=== PATIENT | female | born 1975 ===

== ENCOUNTER 2017-10-11 15:42 | Emergency (ER) | payer SELFPAY ==
[2017-10-11 15:48] VITALS: BP 117/72; PULSE 79; RESP 18; TEMP 98; O2SAT 100
--- NOTE | 2017-10-11 17:04 | ED PDOC ---
HPI: General Adult Time Seen by Provider: 10/11/17 15:56 Chief Complaint (Nursing): ENT Problem Chief Complaint (Provider): Neck pain History Per: Patient History/Exam Limitations: no limitations Onset/Duration Of Symptoms: Days (x 3) Current Symptoms Are (Timing): Still Present Additional Complaint(s): 41 year old female presents to the ED complaining of neck pain, onset 3 days ago. Patient reports difficulty turning her head side to side especially on the left side. Says she feels swelling in left side of neck, back of neck, and head. She admits to taking Advil and Motrin without relief. Patient denies injury, falls, sudden movements, fever, chills, sore throat, URI and trouble breathing, seeing or swallowing. PMD: Dr. Camden Whitman MD Past Medical History Reviewed: Historical Data, Nursing Documentation, Vital Signs Vital Signs: Last Vital Signs Temp 98.0 F 10/11/17 15:45 Pulse 79 10/11/17 15:45 Resp 18 10/11/17 15:45 BP 117/72 10/11/17 15:45 Pulse Ox 100 10/11/17 17:15 - Medical History PMH: No Chronic Diseases - Surgical History Surgical History: No Surg Hx - Family History Family History: States: Unknown Family Hx - Home Medications Home Medications: Ambulatory Orders Medication Instructions Recorded Cyclobenzaprine [Cyclobenzaprine 10 mg PO TID #30 tab 10/11/17 HCl] Naproxen [Naprosyn] 500 mg PO BID PRN #20 tablet 10/11/17 - Allergies Allergies/Adverse Reactions: Allergies Allergy/AdvReac Type Severity Reaction Status Date / Time No Known Allergies Allergy Verified 10/11/17 15:44 Review of Systems ROS Statement: Except As Marked, All Systems Reviewed And Found Negative Constitutional: Negative for: Fever, Chills Eyes: Negative for: Vision Change ENT: Negative for: Throat Pain, Other (trouble swallowing) Respiratory: Negative for: Shortness of Breath Musculoskeletal: Positive for: Neck Pain (limited ROM. Swelling in left side and back of neck and head. ) Neurological: Negative for: Change in Speech Physical Exam - Reviewed Nursing Documentation Reviewed: Yes Vital Signs Reviewed: Yes - Physical Exam Appears: Positive for: Non-toxic, No Acute Distress Head Exam: Positive for: ATRAUMATIC, NORMOCEPHALIC Skin: Positive for: Normal Color, Warm, Dry Eye Exam: Positive for: EOMI, Normal appearance, PERRL ENT: Positive for: Normal ENT Inspection (throat is clear) Neck: Positive for: Limited ROM (in lateral movement of head, mostly turning head to the left. ), Pain On Movement Of Neck (palapable tenderness to left cervical spine and trapezius) Cardiovascular/Chest: Positive for: Regular Rate, Rhythm. Negative for: Murmur Respiratory: Positive for: Normal Breath Sounds. Negative for: Respiratory Distress Gastrointestinal/Abdominal: Positive for: Normal Exam, Soft Back: Positive for: Normal Inspection Extremity: Positive for: Normal ROM. Negative for: Deformity Neurologic/Psych: Positive for: Alert, Oriented - ECG O2 Sat by Pulse Oximetry: 100 (RA) Pulse Ox Interpretation: Normal - Radiology X-Ray: Viewed By Me X-Ray Interpretation: Other (straightening of lordosis c/w acute spasm) - Progress Re-evaluation Time: 17:10 Condition: Improving,but remains with symptoms Medical Decision Making Medical Decision Making: Time: 16:26 Impression: acute muscle spasm of cervical spine Initial Plan: --Urine preg --Cervical spine Complete x-ray --Toradol 60 mg IM --Tylenol 650 mg PO --Valium 5 mg PO --Cervical Spine AP&LAT Scribe Attestation: Documented by Day Cunningham, acting as a scribe for Ann Orr MD. Provider Scribe Attestation: All medical record entries made by the Scribe were at my direction and personally dictated by me. I have reviewed the chart and agree that the record accurately reflects my personal performance of the history, physical exam, medical decision making, and the department course for this patient. I have also personally directed, reviewed, and agree with the discharge instructions and disposition. Disposition - Clinical Impression Clinical Impression: Cervical paraspinal muscle spasm - Patient ED Disposition Is Patient to be Admitted: No Doctor Will See Patient In The: Office Counseled Patient/Family Regarding: Diagnosis, Need For Followup, Rx Given - Disposition Referrals: Lawrence Sage MD [Staff Provider] - Disposition: Routine/Home Disposition Time: 17:15 Condition: IMPROVED Prescriptions: Cyclobenzaprine [Cyclobenzaprine HCl] 10 mg PO TID #30 tab Naproxen [Naprosyn] 500 mg PO BID PRN #20 tablet PRN Reason: Pain, Moderate (4-7) Instructions: Muscle Spasms (DC) Forms: [employer] Connect ([place]se) - POA Present On Arrival: None
--- NOTE | 2017-10-12 09:38 | RAD ---
PROCEDURE: Cervical Spine Radiographs. HISTORY: Pain. COMPARISON: None. FINDINGS: BONES: Alignment maintained. No fracture. Dens Intact. DISC SPACES: Normal. SOFT TISSUES: Normal. No prevertebral soft tissue swelling. OTHER FINDINGS: None. IMPRESSION: Normal cervical spine radiographs
== END 2017-10-11 17:40 | disposition home or self-care (01) ==
LOC: H.ER 15:42
DX: M62.838 Other muscle spasm (principal)
CPT/HCPCS: 72040; 81025; 96372; 99283; J1885

== ENCOUNTER 2018-03-21 13:01 | Emergency (ER) | payer SELFPAY ==
[2018-03-21 13:23] VITALS: RESP 16
[2018-03-21] MEDS ORDERED: methylPREDNISolone 60 MG in Sodium Chloride 0.9% 50 ML IVPB STA (13:59)
[2018-03-21] MEDS ORDERED: Albuterol-Ipratrop 3 mg / 0.5 (3 ml) UD INH STA (13:59)
[2018-03-21] MEDS ORDERED: methylPREDNISolone 60 MG in Sodium Chloride 0.9% 50 ML IVP STA (14:15)
[2018-03-21] MEDS ORDERED: Albuterol-Ipratrop 3 mg / 0.5 (3 ml) UD ONE ×2 (14:21→14:50)
[2018-03-21] MEDS ORDERED: MethylPREDNISolone 40 mg Vial ONE (14:22)
[2018-03-21 14:53] LABS: VENOUS BLOOD GAS BASE EXCESS 7.2 mmol/L (0.0-2.0); VENOUS BLOOD GAS PCO2 51 mmHg (40-60); VENOUS BLOOD GAS PO2 32 mm/Hg (30-55); VENOUS BLOOD PH 7.42 (7.32-7.43)
[2018-03-21 15:01] LABS: BASO % 0.2 % (0.0-2.0); EOS # 0.1 K/uL (0.0-0.7); EOS % 0.9 % (0.0-4.0); HEMOGLOBIN 12.2 g/dL (12.0-16.0); LYMPH # 1.4 K/uL (1.0-4.3); MEAN CELL VOLUME 82.6 fl (81.0-99.0); MEAN CORPUSCULAR HEMOGLOBIN 27.5 pg (27.0-31.0); MEAN CORPUSCULAR HGB CONC 33.3 g/dL (33.0-37.0); MEAN PLATELET VOLUME 9.1 fl (7.2-11.7); MONO # 0.5 K/uL (0.0-0.8); MONO % 5.4 % (0.0-10.0); NEUT # 7.5 K/uL (1.8-7.0); NEUT % 78.5 % (50.0-75.0); RBC 4.45 Mil/uL (3.80-5.20); RED CELL DISTRIBUTION WIDTH 14.5 % (11.5-14.5); WHITE BLOOD COUNT 9.5 K/uL (4.8-10.8)
[2018-03-21 15:03] LABS: SQUAMOUS EPITHIAL 15 /hpf (0-5); URINE BACTERIA RARE (<OCC); URINE BILIRUBIN NEGATIVE (NEGATIVE); URINE BLOOD SMALL (NEGATIVE); URINE CLARITY CLOUDY (Clear); URINE COLOR AMBER (YELLOW); URINE GLUCOSE (UA) NEG (Normal); URINE LEUKOCYTE ESTERASE NEG Leu/uL (Negative); URINE PROTEIN 30 mg/dL (NEGATIVE)
[2018-03-21 15:05] LABS: ALB/GLOB RATIO 1.2 (1.0-2.1); ALBUMIN 3.8 g/dL (3.5-5.0); ALT/SGPT 35 U/L (9-52); AST/SGOT 27 U/L (14-36); BLOOD UREA NITROGEN 12 mg/dl (7-17); CALCIUM 8.7 mg/dL (8.4-10.2); GFR AFRICAN-AMERICAN > 60; GFR NON-AFRICAN AMERICAN > 60
--- NOTE | 2018-03-21 15:22 | RAD ---
Date of service: 03/21/2018 HISTORY: cough COMPARISON: No prior. TECHNIQUE: Chest PA and lateral FINDINGS: LUNGS: Ill-defined rounded opacity at left lung base. Possible nipple shadow. Recommend repeat PA chest radiograph with nipple markers. No infiltrate elsewhere. This is not identified in the lateral projection. PLEURA: No significant pleural effusion identified. No pneumothorax apparent. CARDIOVASCULAR: Normal. OSSEOUS STRUCTURES: No significant abnormalities. VISUALIZED UPPER ABDOMEN: Normal. OTHER FINDINGS: None. IMPRESSION: Ill-defined nodular opacity at left lung base. Recommend repeat PA chest radiograph with nipple markers. Otherwise unremarkable examination.
--- NOTE | 2018-03-21 15:47 | ED PDOC ---
HPI: Fever Fever Onset Was: 03/18/18 Recent Sick Contacts: No Have you had recent travel within the past 21 days to any of the following countries: [place], [place], [place] or [place]?: No Additional Comments: Patient is a 42 y/o female who presents to the ED complaining of a fever with associated cough and shortness of breath w/o chest pain, onset x3-4 days ago. [facility] and was [facility] treatment. Patient was advised to get chest X -ray but was not prescribed medications for fever. Fever has continued to today despite taking Tylenol prompting today's visit. Patient denies sick contacts, recent travel, hemoptysis, nausea, vomiting, diarrhea, abdominal pain, rash, or leg pain. <Justin Marshall - Last Filed: 03/21/18 18:49> <Cindy Gamboa - Last Filed: 03/22/18 14:19> Time Seen by Provider: 03/21/18 13:38 Past Medical History Reviewed: Historical Data, Nursing Documentation, Vital Signs - Medical History PMH: Diabetes Denies: Deep Vein Thrombosis, Pulmonary Embolism - Family History Family History: States: Unknown Family Hx - Social History Current smoker - smoking cessation education provided: No - Immunization History Hx Tetanus Toxoid Vaccination: No Hx Influenza Vaccination: No Hx Pneumococcal Vaccination: No <Justin Marshall - Last Filed: 03/21/18 18:49> <Cindy Gamboa - Last Filed: 03/22/18 14:19> Vital Signs: Last Vital Signs Temp 98.3 F 03/21/18 16:54 Pulse 91 H 03/21/18 16:54 Resp 16 03/21/18 16:54 BP 117/72 03/21/18 16:54 Pulse Ox 100 03/21/18 18:54 - Home Medications Home Medications: Ambulatory Orders Medication Instructions Recorded Cyclobenzaprine [Cyclobenzaprine 10 mg PO TID #30 tab 10/11/17 HCl] Naproxen [Naprosyn] 500 mg PO BID PRN #20 tablet 10/11/17 Albuterol HFA [Ventolin HFA 90 2 puff IH Q4H PRN #1 each 03/21/18 mcg/actuation (8 g)] Levofloxacin [Levaquin] 500 mg PO DAILY #6 tablet 03/21/18 Methylprednisolone [Medrol Dose 4 mg PO DAILY #21 mg 03/21/18 Pack (21 tabs)] Promethazine DM [Phenergan DM 5 - 10 ml PO Q8 PRN #120 ml 03/21/18 Syrup] - Allergies Allergies/Adverse Reactions: Allergies Allergy/AdvReac Type Severity Reaction Status Date / Time No Known Allergies Allergy Verified 03/21/18 13:19 Review of Systems ROS Statement: Except As Marked, All Systems Reviewed And Found Negative Cardiovascular: Negative for: Chest Pain Respiratory: Positive for: Cough, Shortness of Breath. Negative for: Hemoptysis Gastrointestinal: Negative for: Nausea, Vomiting, Abdominal Pain, Diarrhea Musculoskeletal: Negative for: Leg Pain Skin: Negative for: Rash <Justin Marshall - Last Filed: 03/21/18 18:49> Physical Exam - Reviewed Nursing Documentation Reviewed: Yes Vital Signs Reviewed: Yes - Physical Exam Appears: Positive for: Non-toxic, No Acute Distress Head Exam: Positive for: ATRAUMATIC, NORMOCEPHALIC Skin: Positive for: Normal Color, Warm, Dry Eye Exam: Positive for: EOMI, Normal appearance, PERRL Neck: Positive for: Normal, Painless ROM, Supple Cardiovascular/Chest: Positive for: Regular Rate, Rhythm. Negative for: Murmur Respiratory: Positive for: Normal Breath Sounds, Wheezing (bilateral expiratory wheezing), Other (speaking full sentences). Negative for: Respiratory Distress Gastrointestinal/Abdominal: Positive for: Normal Exam, Soft. Negative for: Tenderness Back: Positive for: Normal Inspection. Negative for: L CVA Tenderness, R CVA Tenderness Extremity: Positive for: Normal ROM. Negative for: Pedal Edema, Deformity Neurologic/Psych: Positive for: Alert, Oriented. Negative for: Motor/Sensory Deficits <Justin Marshall - Last Filed: 03/21/18 18:49> - Laboratory Results Result Diagrams: 03/21/18 14:35 03/21/18 14:35 - ECG O2 Sat by Pulse Oximetry: 100 (RA) Pulse Ox Interpretation: Normal <Justin Marshall - Last Filed: 03/21/18 18:49> - Laboratory Results Result Diagrams: 03/21/18 14:35 03/21/18 14:35 <Cindy Gamboa - Last Filed: 03/22/18 14:19> Medical Decision Making <Justin Marshall - Last Filed: 03/21/18 18:49> <Cindy Gamboa - Last Filed: 03/22/18 14:19> Medical Decision Making: Time: 13:58 Impression: Fever with shortness of breath Initial Plan: --VBG --EKG --CMP --Troponin I --CBC w/ diff --CXR --Albuterol --Solu-Medrol --Blood culture --Influenza A B --Rapid strep --UA Patient provided paperwork for past X-Ray which showed a prescription for Zithromax which patient was not aware of until now. Time: 16:04 Upon reevaluation patient is feeling better, lungs are clear, and she is speaking in full sentences. Case discussed with Dr. Gamboa who agrees with care and plan of disposition --Levaquin 500 mg IV ordered. --Call placed to Dr. Boo [facility] resident who will arrange for follow up for patient. --Patient is advised to follow up with clinic on Friday but instructed to return to the ED immediately if symptoms worsen. --All questions and concerns answered. There is agreement to plan and patient verbalizes understanding to provider. Advised to not fill Zithromax rx given the Levaquin As Levaquin was infusing pt. began to feel nauseous and had 1 episode of non- bloody vomiting. Zofran 4mg IV ordered. On final re-evaluation, pt. reports feeling much better. Tolerating water while in ED. Denies abd pain. Scribe Attestation: Documented by Cassius Sow, acting as a scribe for Justin Marshall PA-C. Provider Scribe Attestation: All medical record entries made by the scribe were at my direction and personally dictated by me. I have reviewed the chart and agree that the record accurately reflects my personal performance of the history, physical exam, medical decision making, and the department course for this patient. I have also personally directed, reviewed, and agree with the discharge instructions and disposition. (Justin Marshall) Disposition - Patient ED Disposition Is Patient to be Admitted: No - Disposition Disposition: Routine/Home Disposition Time: 16:04 <Justin Marshall - Last Filed: 03/21/18 18:49> <Cindy Gamboa - Last Filed: 03/22/18 14:19> - Clinical Impression Clinical Impression: Pneumonia - Disposition Referrals: [facility] [Outside] [facility] [Outside] Condition: IMPROVED Additional Instructions: CHARLENE CAMPUZANO, thank you for letting us take care of you today. Your provider was Cindy Gamboa MD and you were treated for POSS FEVER. The emergency medical care you received today was directed at your acute symptoms. If you were prescribed any medication, please fill it and take as directed. It may take several days for your symptoms to resolve. Return to the Emergency Department if your symptoms worsen, do not improve, or if you have any other problems. Please contact your doctor or call one of the physicians/clinics you have been referred to that are listed on the Patient Visit Information form that is included in your discharge packet. Bring any paperwork you were given at discharge with you along with any medications you are taking to your follow up visit. Our treatment cannot replace ongoing medical care by a primary care provider outside of the emergency department. Thank you for allowing the [facility] team to be part of your care today. If you had an X-Ray or CT scan: A Radiologist will review the ED reading if any change in treatment is needed we will contact you. If you had a blood, urine, or wound culture: It will take several days for the results, if any change in treatment is needed we will contact you. If you had an STI test: It will take 48 hours for the results. Please call after 1 week if you have not heard back. Prescriptions: Albuterol HFA [Ventolin HFA 90 mcg/actuation (8 g)] 2 puff IH Q4H PRN #1 each PRN Reason: wheezing or cough Levofloxacin [Levaquin] 500 mg PO DAILY #6 tablet Methylprednisolone [Medrol Dose Pack (21 tabs)] 4 mg PO DAILY #21 mg Promethazine DM [Phenergan DM Syrup] 5 - 10 ml PO Q8 PRN #120 ml PRN Reason: Cough Instructions: Pneumonia, Adult (DC) Forms: [employer] Connect (Trinidadian) Print Language: DANISH
[2018-03-21 16:55] VITALS: BP 117/72; PULSE 91; TEMP 98.3
[2018-03-21] MEDS ORDERED: levoFLOXacin 500 mg in D5W 500 MG/100 ML BAG IVPB STA (17:02)
[2018-03-21] MEDS ORDERED: levoFLOXacin 500 mg in D5W 500 MG/100 ML BAG IVPB ONE (17:11)
[2018-03-21 17:12] VITALS: O2SAT 100
--- NOTE | 2018-03-22 01:59 | CARD ---
APPROVED REPORT Date of service: 03/21/2018 <Conclusion> Normal sinus rhythm Normal ECG
== END 2018-03-21 18:10 | disposition home or self-care (01) ==
LOC: H.ER 13:01
DX: J18.9 Pneumonia, unspecified organism (principal); E11.9 Type 2 diabetes mellitus without complications
CPT/HCPCS: 71046; 80053; 81003; 81025; 82803; 84484; 85025; 87040; 87070; 87430; 87804; 93005; 96374; 99285; J2405; J2930